=== PATIENT | female | born 1965 | race Caucasian/White ===

== ENCOUNTER 2019-11-17 01:11 | Emergency (ER) | payer OTHER ==
[~2019-11-17] VITALS: Ht 165.1 cm; Wt 91.6 kg
[~2019-11-17 01:11] MED LIST: ACETAMINOPHEN325 M1 PO; BACTRIM DS TAB1 EACH PO; BENADRYL25 MG PO; DIFLUCAN150 MG PO; GLYBURIDE; GLYBURIDE 2.52.5 M1 PO; KEFLEX500 M1 PO; KEFLEX500 MG PO; LEVEMIR; LISINOPRIL10 MG PO; NOVOLOG100 UNIT/1; NOVOLOG100 UNIT/1 SUBQ; TRINESSA1 EACH PO; VICODIN ES TAB1 EACH PO; VICTOZA0.6 MG/0.1; VICTOZA0.6 MG/0.1 SUBQ
[2019-11-17] MEDS ORDERED: NAPROSYN500 MG PO (01:55)
[2019-11-17] MEDS ORDERED: HYDROCODON-ACE1 EAC7 PO (01:55)
[2019-11-17] MEDS ORDERED: AUGMENTIN 500-1 EACH PO (01:55)
[2019-11-17 02:33] VITALS: BP 134/78
== END 2019-11-17 02:33 | disposition home or self-care (01) ==
LOC: M.ERS 01:11
DX: L02.811 Cutaneous abscess of head [any part, except face] (principal); L03.811 Cellulitis of head [any part, except face]; E11.9 Type 2 diabetes mellitus without complications; M32.9 Systemic lupus erythematosus, unspecified; Z88.5 Allergy status to narcotic agent; Z88.8 Allergy status to other drugs, medicaments and biological substances; Z91.030 Bee allergy status; Z90.89 Acquired absence of other organs; Z79.4 Long term (current) use of insulin

== ENCOUNTER 2019-11-20 13:23 | Inpatient (IN) | payer OTHER ==
[~2019-11-20] VITALS: Ht 165.1 cm; Wt 91.6 kg
[~2019-11-20 13:23] MED LIST changes: +AUGMENTIN 500-1 EACH PO; +HYDROCODON-ACE1 EAC7 PO; +NAPROSYN500 MG PO
[2019-11-20 13:32] VITALS: BP 116/75
[2019-11-20 13:55] LABS: ABSOLUTE BASOPHILS 0.1 thou/uL (0.0-0.2); ABSOLUTE EOSINOPHILS 0.2 thou/uL (0.0-0.7); ABSOLUTE MONOCYTES 0.3 thou/uL (0.0-1.2); ABSOLUTE NEUTROPHILS 5.1 thou/uL (1.6-8.1); BASOPHILS 1.2 %; HEMATOCRIT 42.2 % (37.0-47.0); HEMOGLOBIN 14.4 gm/dL (12.0-15.0); LYMPHOCYTES 14.4 %; MCH 28.8 pg (26.0-34.0); MCHC 34.3 g/dL (28.0-37.0); MCV 84.2 fL (80.0-100.0); MONOCYTES 5.3 %; MPV 8.6 fl. (7.2-11.1); NUCLEATED RBCS 0 /100WBC; PLATELET COUNT* 172 thou/uL (150-400); POLYS 76.1 %; RBC 5.01 mil/uL (4.20-5.00); RDW-CV 12.9 % (10.5-14.5); WBC 6.6 thou/uL (4.0-11.0)
[2019-11-20 14:06] LABS: CALCIUM 8.4 mg/dL (8.5-10.1); POTASSIUM 4.6 mmol/L (3.5-5.1)
[2019-11-20 14:07] LABS: TOTAL BILIRUBIN 0.6 mg/dL (<0.1-1.0); TOTAL PROTEIN 6.9 g/dL (6.4-8.2)
[2019-11-20 14:47] LABS: URINE BILIRUBIN NEGATIVE (Negative); URINE BLOOD NEGATIVE (Negative); URINE CLARITY CLEAR; URINE COLOR YELLOW; URINE GLUCOSE-RANDOM 3+ (Negative); URINE KETONES NEGATIVE (Negative); URINE LEUKOCYTES-REFLEX NEGATIVE (Negative); URINE NITRITE-REFLEX NEGATIVE (Negative); URINE PROTEIN NEGATIVE (Negative); URINE SPECIFIC GRAVITY <= 1.005 (1.005-1.030)
[2019-11-20 18:29] VITALS: BP 142/81
[2019-11-20 18:45] VITALS: BP 122/64
[2019-11-20 19:30] VITALS: BP 128/66
[2019-11-21 04:50] LABS: ABSOLUTE BASOPHILS 0.1 thou/uL (0.0-0.2); ABSOLUTE EOSINOPHILS 0.3 thou/uL (0.0-0.7); ABSOLUTE LYMPHOCYTES 1.9 thou/uL (0.8-5.3); ABSOLUTE MONOCYTES 0.4 thou/uL (0.0-1.2); ABSOLUTE NEUTROPHILS 3.9 thou/uL (1.6-8.1); BASOPHILS 1.2 %; HEMATOCRIT 35.5 % (37.0-47.0); HEMOGLOBIN 12.7 gm/dL (12.0-15.0); LYMPHOCYTES 28.8 %; MCH 29.1 pg (26.0-34.0); MCHC 35.8 g/dL (28.0-37.0); MCV 81.2 fL (80.0-100.0); MONOCYTES 6.6 %; MPV 8.5 fl. (7.2-11.1); NUCLEATED RBCS 0 /100WBC; PLATELET COUNT* 157 thou/uL (150-400); POLYS 59.4 %; RBC 4.37 mil/uL (4.20-5.00); RDW-CV 13.1 % (10.5-14.5); WBC 6.5 thou/uL (4.0-11.0)
[2019-11-21 05:28] LABS: CALCIUM 7.6 mg/dL (8.5-10.1); CREATININE 0.5 mg/dL (0.6-1.3); POTASSIUM 3.8 mmol/L (3.5-5.1)
[2019-11-21 07:55] VITALS: BP 127/68
[2019-11-21 21:00] VITALS: BP 150/87
[2019-11-22 04:00] VITALS: BP 133/69
[2019-11-22 04:22] LABS: ABSOLUTE BASOPHILS 0.1 thou/uL (0.0-0.2); ABSOLUTE EOSINOPHILS 0.2 thou/uL (0.0-0.7); ABSOLUTE LYMPHOCYTES 1.8 thou/uL (0.8-5.3); ABSOLUTE MONOCYTES 0.4 thou/uL (0.0-1.2); ABSOLUTE NEUTROPHILS 3.1 thou/uL (1.6-8.1); EOSINOPHILS 3.7 %; LYMPHOCYTES 32.1 %; MCH 28.6 pg (26.0-34.0); MCHC 35.2 g/dL (28.0-37.0); MCV 81.4 fL (80.0-100.0); MONOCYTES 7.2 %; MPV 8.5 fl. (7.2-11.1); NUCLEATED RBCS 0 /100WBC; PLATELET COUNT* 169 thou/uL (150-400); RBC 4.54 mil/uL (4.20-5.00); WBC 5.6 thou/uL (4.0-11.0)
[2019-11-22 04:49] LABS: CALCIUM 8.1 mg/dL (8.5-10.1); CREATININE 0.7 mg/dL (0.6-1.3); POTASSIUM 4.1 mmol/L (3.5-5.1)
[2019-11-22 05:36] LABS: GLYCOHEMOGLOBIN (HGB A1C) 13.4 % (4.8-5.6)
[2019-11-22 08:00] VITALS: BP 145/86
[2019-11-22 20:00] VITALS: BP 154/85
[2019-11-23 04:43] LABS: ABSOLUTE EOSINOPHILS 0.2 thou/uL (0.0-0.7); ABSOLUTE LYMPHOCYTES 1.7 thou/uL (0.8-5.3); ABSOLUTE MONOCYTES 0.5 thou/uL (0.0-1.2); ABSOLUTE NEUTROPHILS 2.9 thou/uL (1.6-8.1); BASOPHILS 0.9 %; EOSINOPHILS 4.3 %; HEMATOCRIT 36.5 % (37.0-47.0); LYMPHOCYTES 31.9 %; MCH 28.8 pg (26.0-34.0); MCHC 35.6 g/dL (28.0-37.0); MCV 80.9 fL (80.0-100.0); MONOCYTES 8.7 %; MPV 8.3 fl. (7.2-11.1); NUCLEATED RBCS 0 /100WBC; PLATELET COUNT* 183 thou/uL (150-400); POLYS 54.2 %; RBC 4.51 mil/uL (4.20-5.00); RDW-CV 13.1 % (10.5-14.5); WBC 5.3 thou/uL (4.0-11.0)
[2019-11-23 05:00] LABS: CALCIUM 8.1 mg/dL (8.5-10.1); CREATININE 0.6 mg/dL (0.6-1.3); POTASSIUM 3.7 mmol/L (3.5-5.1)
[2019-11-23 07:45] VITALS: BP 142/84
[2019-11-23 20:00] VITALS: BP 142/89
[2019-11-24 07:50] VITALS: BP 133/92
[2019-11-24] MEDS ORDERED: HUMULIN R100 UNIT/1 SUBQ (14:47)
[2019-11-24] MEDS ORDERED: HUMULIN N100 UNIT/1 SUBQ (14:47)
[2019-11-24] MEDS ORDERED: CLINDAMYCIN HC300 MG PO (14:48)
[2019-11-24 16:54] VITALS: BP 133/92
== END 2019-11-24 17:00 | disposition home health service (06) | DRG 637 ==
LOC: M.ERS 13:23 → M.3W 15:28 → M.TBA-ER 15:28 → M.3W 18:39
PROVIDERS: Nurse Practitioner Family; ADMIT Internal Medicine; ATTEND Internal Medicine
PROC: 0W9 Anatomical Regions, General, Drainage (ICD-10-PCS; principal; 2019-11-20)
PROC: 0H90XZZ Drainage of Scalp Skin, External Approach (ICD-10-PCS; 2019-11-22)
DX: E11.00 Type 2 diabetes mellitus with hyperosmolarity without nonketotic hyperglycemic-hyperosmolar coma (NKHHC) (principal); R65.11 Systemic inflammatory response syndrome (SIRS) of non-infectious origin with acute organ dysfunction; L02.811 Cutaneous abscess of head [any part, except face]; N17.9 Acute kidney failure, unspecified; L03.811 Cellulitis of head [any part, except face]; E11.65 Type 2 diabetes mellitus with hyperglycemia; E86.0 Dehydration; M32.9 Systemic lupus erythematosus, unspecified; Z20.828 Contact with and (suspected) exposure to other viral communicable diseases; Z79.899 Other long term (current) drug therapy; Z79.4 Long term (current) use of insulin; Z88.8 Allergy status to other drugs, medicaments and biological substances; Z91.038 Other insect allergy status; Z91.14 Patient's other noncompliance with medication regimen; Z23 Encounter for immunization